=== PATIENT | male | born 1960 | race American Indian/Alaskan Native ===

== ENCOUNTER 2018-01-09 06:50 | Emergency (ER) | payer SELFPAY ==
[2018-01-09 07:25] VITALS: BP 96/58
[2018-01-09] MEDS ORDERED: NACL 0.9% 1000 ML 1,000 ML IV ONE (09:08)
--- NOTE | 2018-01-09 09:22 | Emergency Department Report ---
ED Animal Bite HPI - General Chief Complaint: Animal Bite Stated Complaint: DOG BITE Time Seen by Provider: 01/09/18 07:48 Source: EMS Mode of arrival: Stretcher Limitations: Other - Related Data Allergies Allergy/AdvReac Type Severity Reaction Status Date / Time Unable to Assess Allergy Unverified 01/09/18 07:27 ED Review of Systems ROS: Stated complaint: DOG BITE Other details as noted in HPI ED Past Medical Hx - Past Medical History Previous Medical History?: Yes Additional medical history: ETOH abuse - Surgical History Additional Surgical History: unable to obtain - Social History Smoking Status: Never Smoker Substance Use Type: Alcohol ED Physical Exam - General Limitations: Other ED Course Vital Signs 01/09/18 07:18 Temperature 98.5 F Pulse Rate 80 Respiratory 18 Rate Blood Pressure 96/58 O2 Sat by Pulse 95 Oximetry Critical care attestation.: If time is entered above; I have spent that time in minutes in the direct care of this critically ill patient, excluding procedure time. ED Disposition Condition: Stable Referrals: PRIMARY CARE [Primary Care Provider] - 3-5 Days
--- NOTE | 2018-01-09 09:34 | Event Note ---
Date: 01/09/18 TO FAST TRACK VIA EMS INITIALLY ASLEEP/ INTOXICATED SP DOG BITE PER 2ND HAND REPORT MOANED TO TACTILE STIMULI LABS ORDERED URINE ORDERED NOW WAKE, SPITTING, UNCOOPERATIVE TO MAIN AREA ED- FOR SUBSTANCE/PSYCH EVAL.
--- NOTE | 2018-01-09 09:53 | Event Note ---
Date: 01/09/18 NEHEMIAS CHARGE NURSE STATED PT WENT AMA
== END 2018-01-09 09:50 | disposition left against medical advice (07) ==
LOC: ED 06:50
DX: S51.851A Open bite of right forearm, initial encounter (principal); Z53.21 Procedure and treatment not carried out due to patient leaving prior to being seen by health care provider; W54.0XXA Bitten by dog, initial encounter; Y93.89 Activity, other specified; Y92.89 Other specified places as the place of occurrence of the external cause; Y99.8 Other external cause status
CPT/HCPCS: J7030